=== PATIENT | female | born 1970 | race Caucasian/White ===

== ENCOUNTER 2016-04-04 16:02 | Outpatient (CLI) | payer OTHER ==
--- NOTE | 2016-04-04 16:22 | DIAGNOSTIC IMAGING REPORT ---
PROCEDURE: XR CHEST 2 VIEW INDICATION: ASTHMA TECHNIQUE: PA and lateral views. COMPARISON: Chest 05/13/2011 FINDINGS: Lungs are clear. Heart and mediastinum are normal. Thorax is normal. IMPRESSION: 1. Negative chest.
== END 2016-04-04 23:00 ==
LOC: XR SRH 16:02
DX: J45.909 Unspecified asthma, uncomplicated (principal)

== ENCOUNTER 2016-04-11 08:27 | Outpatient (CLI) | payer OTHER | END 2016-04-11 23:00 | disposition home or self-care (01) | LOC: RT SRH 08:27 | DX: J44.9 Chronic obstructive pulmonary disease, unspecified (principal) ==